=== PATIENT | male | born 1985 | race Hispanic/Latino ===

== ENCOUNTER 2021-03-31 00:48 | Emergency (ER) | payer SELFPAY ==
[~2021-03-31] VITALS: Ht 170.2 cm; Wt 69.9 kg
[2021-03-31] MEDS ORDERED: NEOMYCIN/POLYMYXIN/HC OTIC SUSP 10ML BOTTLE ONE (05:54)
[2021-03-31] MEDS ORDERED: KETOROLAC 60 MG VIAL (30MG/ML) ONE (05:54)
[2021-03-31] MEDS ORDERED: AMOXICILLIN 500 MG CAPSULE PO ONE (05:55)
[2021-03-31] MEDS ORDERED: MORPHINE 2 MG SYG ONE (05:56)
== END 2021-03-31 06:33 | disposition home or self-care (01) ==
LOC: EDH 00:48
DX: H66.91 Otitis media, unspecified, right ear (principal); H60.91 Unspecified otitis externa, right ear
CPT/HCPCS: 96372 ×2; 99284; J1885